=== PATIENT | male | born 2000 | race Caucasian/White ===

== ENCOUNTER 2024-06-21 15:48 | Emergency (ER) | payer BC, SELFPAY ==
--- NOTE | ~2024-06-21 | XR_ITS ---
XR finger 4th LT min 2V Ordering provider: Marija Grande MD History: . smashed finger at work today . Comparison: None. FINDINGS: BONES: Comminuted fractures seen in the tuft of the fourth finger of the left hand. Displacement of t he fragment seen anteriorly No other fractures seen. JOINT SPACES: Normal. SOFT TISSUES: Missing soft tissue is seen on the dorsum of the distal phalanx of the fourth finger IMPRESSION: Comminuted fracture in the tuft of the distal phalanx of the fourth finger. Reviewed, dictated and finalized at location A.
[2024-06-21 15:54] VITALS: BP 149/87; PULSE 77; RESP 20; TEMP 36.4; O2SAT 100
--- NOTE | 2024-06-21 16:17 | PC.NURSE ---
Pt declined ice pack at this time
--- NOTE | 2024-06-21 16:34 | ED.UPPEXIN ---
HPI - Extremity Injury (Upper) General Chief Complaint: Extremity Injury, Upper Stated Complaint: smashed finger Time Seen by Provider: 06/21/24 16:09 Source: patient Mode of arrival: ambulatory Limitations: no limitations History of Present Illness HPI narrative: 23 YEARS OLD WHITE MALE CAME TO THE EMERGENCY ROOM WITH INJURY AT THE TIP OF THE LEFT 4TH FINGER ON A PIECE OF EQUIPMENT AT WORK PRIOR TO ARRIVAL. HE DENIES OTHER INJURIES. PATIENT REPORTS HAVING A TETANUS SHOT WITHIN 5 YEARS. Related Data Allergies Allergy/AdvReac Type Severity Reaction Status Date / Time No Known Allergies Allergy Unverified 05/19/21 12:34 Review of Systems Review of Systems: All systems reviewed & are unremarkable except as noted in HPI and below PMFSH Surgical History Surgical History S/P ACL repair S/P MCL repair Social History Social History Smoking status: Former smoker Alcohol intake: current Alcohol use details: social Substance use: never Substance use type: does not use Living arrangements: with family Occupation/Education: occupation Gender identity (if verbalized by the patient): Male Exam Narrative: GENERAL APPEARANCE: WELL-DEVELOPED, WELL-NOURISHED SKIN: NORMAL COLOR HEAD: NORMOCEPHALIC, NONTRAUMATIC VASCULAR: NORMAL PERIPHERAL PULSES, NORMAL CAPILLARY REFILL. MUSCULOSKELETAL: LEFT RING FINGER SHOWED LACERATION AT THE TERMINAL PHALANX, WITH SUBANGULAR HEMATOMA NEUROLOGIC: ALERT AND ORIENTED ?3, GLUCOSE AND SYRUP WEIGHER IS NORMAL TESTED, NO GROSS MOTOR DEFICIT Course Consultations Consultation #1: DR. HERNANDEZ, FEW STITCHES, SPLINT, ANTIBIOTIC, SEE PATIENT NEXT WEEK Date: 06/21/24 Vital Signs Vital signs: Vital Signs Temperature 36.4 C 06/21/24 15:54 Pulse Rate 77 06/21/24 15:54 Respiratory Rate 20 06/21/24 15:54 Blood Pressure 149/87 H 06/21/24 15:54 Pulse Oximetry 100 06/21/24 15:54 Oxygen Delivery Room Air 06/21/24 15:54 Temperature 36.4 C 06/21/24 15:54 Pulse Rate 77 06/21/24 15:54 Respiratory Rate 20 06/21/24 15:54 Blood Pressure 149/87 H 06/21/24 15:54 Pulse Oximetry 100 06/21/24 15:54 Oxygen Delivery Room Air 06/21/24 15:54 Procedures Laceration Laceration 1: Date: 06/21/24 Time: 18:34 Site: hand Side (If applicable): left Size (cm): 1.5 Description: flap Depth: simple, single layer Local Anesthetic: lidocaine 1% Amount of anesthesia used (mL): 5 Pre-repair: irrigated ====== Skin Level ====== Skin layer closed with: nylon Size (cm): 6-0 Number of sutures: 3 Technique: simple, interrupted ====== Subcutaneous Layer ====== ====== Muscle Layer ====== ====== Tendon Layer ====== MDM - Extremity Injury (Upper) MDM Narrative Medical decision making narrative: PATIENT PRESENTS WITH TERMINAL PHALANX LEFT 4TH FINGER INJURY, PATIENT IS UP-TO-DATE FOR TETANUS SHOT X-RAY SHOWED COMMINUTED TUFT FRACTURE PATIENT RECEIVED 2 G OF ANCEF IV PATIENT RECEIVED FOR SUTURES TO KEEP THE WOUND EDGES CLOSE DISCHARGED ON KEFLEX, CALL DR. HERNANDEZ OFFICE FOR APPOINTMENT NEXT WEEK Imaging Data Radiologist's impression: Impressions Finger X-Ray 06/21/24 16:12 IMPRESSION: Comminuted fracture in the tuft of the distal phalanx of the fourth finger. Critical Care Time Critical Care Time Critical Care Time: No Discharge Plan Discharge Clinical Impression: Fracture of finger, distal phalanx, left, open Patient Disposition: Home, Self-Ca
[2024-06-21] MEDS: ceFAZolin 2 GM/D5W 50 ML 2 GM/50 ML BAG IVPB (17:32)
[2024-06-21] MEDS: HYDROGEN PEROXIDE 3% SOLN(*SP) 473 ML BOTTLE (17:33)
[2024-06-21 19:19] VITALS: BP 128/78; PULSE 78; RESP 16; TEMP 36.9; O2SAT 98
== END 2024-06-21 19:20 | disposition home or self-care (01) ==
PROVIDERS: Emergency Provider Emergency Medicine
DX: S62.635B Displaced fracture of distal phalanx of left ring finger, initial encounter for open fracture (principal); W23.0XXA Caught, crushed, jammed, or pinched between moving objects, initial encounter
CPT/HCPCS: 12001; 29130; 73140; 96365; 99284; A9270; J0690

== ENCOUNTER 2024-07-03 11:44 | Outpatient (CLI) | payer BC, SELFPAY ==
--- NOTE | ~2024-07-03 | XR_ITS ---
EXAMINATION: XR finger 4th LT min 2V DATE: 07/03/2024 11:58 INDICATION: Displaced fracture of the fourth distal phalanx. TECHNIQUE: Dorsal palmar, lateral and 2 oblique views of the left fourth digit were obtained COMPARISON: 06/21/2024 FINDINGS: Again seen is a comminuted fracture of the tuft of the left fourth distal phalanx with no significant change in the multiple small bone fragments many of which are displaced as a group approximately 2 m m proximal and palmar from the remainder of the tuft. No evidence of ostial lysis to suggest osteomye litis. No definitive productive changes of healing. Remainder of the visualized bones are normal with no other fractures evident with normal joint spaces. IMPRESSION: 1. No significant change in a comminuted tuft fracture of the left fourth distal phalanx Reviewed, dictated and finalized at location A. IMPRESSION: 1. No significant change in a comminuted tuft fracture of the left fourth dista l phalanx
== END 2024-07-03 11:45 | disposition home or self-care (01) ==
LOC: ANHIMG 11:48
PROVIDERS: Visit Provider Physician Assistant Surgical
DX: S62.635A Displaced fracture of distal phalanx of left ring finger, initial encounter for closed fracture (principal); X58.XXXA Exposure to other specified factors, initial encounter
CPT/HCPCS: 73140

== ENCOUNTER 2024-08-21 14:31 | Outpatient (CLI) | payer BC, SELFPAY ==
--- NOTE | ~2024-08-21 | XR_ITS ---
EXAMINATION: XR finger 4th LT min 2V DATE: 08/21/2024 14:46 INDICATION: Displaced fracture of distal phalanx of left hand fourth digit. TECHNIQUE: 4 views of left hand fourth digit were obtained. COMPARISON: Left hand fourth digit radiographs 07/03/2024, 06/21/2024 FINDINGS: Again seen is a comminuted fracture of tuft of fourth distal phalanx. The main distal fract ure fragment demonstrates 2 mm palmar displacement. Joint spaces are normal. IMPRESSION: 1. Unchanged comminuted fracture of fourth distal phalanx. Reviewed, dictated and finalized at location A.
== END 2024-08-21 14:32 | disposition home or self-care (01) ==
LOC: ANHIMG 14:34
PROVIDERS: Visit Provider Physician Assistant Surgical
DX: S62.635D Displaced fracture of distal phalanx of left ring finger, subsequent encounter for fracture with routine healing (principal); X58.XXXD Exposure to other specified factors, subsequent encounter
CPT/HCPCS: 73140

== ENCOUNTER 2025-09-05 12:09 | Emergency (ER) | payer OTHER, SELFPAY ==
--- NOTE | ~2025-09-05 | CT_ITS ---
EXAMINATION: CT abdomen pelvis w con DATE: 09/05/2025 15:16 INDICATION: Abdominal pain TECHNIQUE: Computed tomography (CT) of the abdomen and pelvis was performed with 100 mL Omnipaque-350 intravenous contrast. Automated exposure control and iterative reconstruction technique were employed. The dose-length product was 675.78 mGy-cm. COMPARISON: None FINDINGS: Lung bases are clear. Heart size is normal. No pericardial or pleural effusion. Liver, gallbladder, spleen, pancreas, bilateral adrenal glands and kidneys are normal. There are few scattered clonic diverticula without adjacent inflammatory stranding to suggest diverticular colitis. No bowel obstruction. There is wall thickening of the mildly dilated appendix which measures up to 9 mm in maximal diameter with mild periappendiceal stranding and a few mildly prominent likely reactive ileocolic chain lymph nodes. Constellation of findings most consistent with acute appendicitis. No evident abscess or free intraperineal gas or fluid. Bladder is normal. No pathologically enlarged abdominal or pelvic lymp hadenopathy. Bones are unremarkable. IMPRESSION: 1. Radiographically uncomplicated acute appendicitis. Dr. Ma discussed these findings with Dr. Wells at 3:43 PM. Reviewed, dictated and finalized at location A. IMPRESSION: 1. Radiographically uncomplicated acute appendicitis. Dr. Ma discussed th raúl findings with Dr. Wells at 3:43 PM.
[2025-09-05 12:13] VITALS: BP 129/83; PULSE 83; RESP 16; TEMP 37.3; O2SAT 100
--- NOTE | 2025-09-05 12:15 | ED.ABDPAIN ---
HPI - Abdominal Pain General Chief Complaint: Abdominal Pain Stated Complaint: lower abdominal pain Time Seen by Provider: 09/05/25 12:15 Source: patient Mode of arrival: ambulatory Limitations: no limitations History of Present Illness HPI narrative: 25-year-old male with no past medical history presents to the ED with a 1 day history of --lower abdominal pain. Pain was rated as 6/10. No radiation of the pain. No nausea/vomiting/diarrhea. No fever or chills. No dysuria or hematuria. MD elicited complaint: abdominal pain Pertinent past history: none Onset (ago): day(s) (One day) Pain Consistency: constant Location: RLQ and suprapubic Severity: moderate Pain scale (0-10): 6 Quality: aching Radiation: none Migration to: no migration Exacerbating factors: nothing Relieving factors: nothing Associated symptoms: denies other symptoms Related Data Home Medications ?Medication ?Instructions ?Recorded ?Confirmed ?Last Taken ?Type No Home Medications 09/05/25 09/05/25 Unknown History Allergies Allergy/AdvReac Type Severity Reaction Status Date / Time No Known Allergies Allergy Verified 09/05/25 12:21 Review of Systems Review of Systems: All systems reviewed & are unremarkable except as noted in HPI and below Constitutional: Constitutional: Reports as per HPI and Reports no additional constitutional complaints Eyes: Eyes: Reports as per HPI and Reports no additional eye complaints ENT: Reports system reviewed and no additional complaints, except as documented and Reports as per HPI Cardiovascular: Cardiovascular: Reports as per HPI and Reports no additional cardiovascular complaints Respiratory: Respiratory: Reports as per HPI and Reports no additional respiratory complaints Gastrointestinal: Gastrointestinal: Reports as per HPI, Reports no additional gastrointestinal complaints and Reports abdominal pain Genitourinary: Genitourinary: Reports no additional male genitourinary complaints and Reports as per HPI Musculoskeletal: Musculoskeletal: Reports no additional musculoskeletal complaints and Reports as per HPI Integumentary/Breasts: Skin/Breast: Reports system reviewed and no additional complaints, except as docu and Reports as per HPI Neurologic: Reports system reviewed and no additional complaints, except as documented and Reports as per HPI Psychiatric: Psychiatric: Reports no additional psychiatric complaints and Reports as per HPI Endocrine: Endocrine: Reports no additional endocrine complaints and Reports as per HPI Hematologic/Lymphatic: Hematologic/Lymphatic: Reports no additional hematologic/lymphatic complaints and Reports as per HPI Allergic/Immunologic: Allergic/Immunologic: Reports no additional allergic/immunologic complaints and Reports as per HPI [facility] Surgical History Surgical History S/P MCL repair S/P ACL repair Family History Family History Father No problems noted. Mother Multiple sclerosis Sibling No problems noted. Social History Social History Social History: Caffeine-daily Smoking status: Former smoker Smokeless tobacco user: other Second hand tobacco smoke exposure: Yes Alcohol intake: current Alcohol use details: social Substance use: never Substance use type: does not use Do You Feel Safe in your Home?: Yes Lack of Transportation: No Lack of Food: Never True Current Housing: I Have Housing Concerned About Future Housing: No Difficulty Paying Gas/Electric Bills: No Difficulty Paying for Meds: No Currently Unemployed: No Education: Associate Degree Difficulty w/ Childcare or Family Care: No Living arrangements: with family Occupation/Education: occupation 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 Afebrile. Const: Orientation/consciousness: patient oriented x3 Limitations: no limitations HENMT: Head: normal to inspection Ears: external ears normal Face/Nose/Sinus: Normal external nose present Face and sinus: normal facial exam Teeth and gingiva: dentition normal Throat: posterior oropharynx normal Eyes: Conjunctivae: conjunctivae normal Pupils: Equal, round and reactive pupils present EOM: EOMs intact bilaterally Direct Ophthalmoscopy: no photophobia Neck: Neck: normal visual inspection, no lymphadenopathy and no meningeal signs Chest: Chest palpation & inspection: normal inspection of the chest Resp: Effort & Inspection: normal respiratory effort Auscultation: clear to auscultation bilaterally Cardio: Rate: regular rate Rhythm: regular rhythm GI: GI Palp: Yes Soft to palpation Auscultation: normal bowel sounds Other: Tenderness in the suprapubic region and right lower quadrant. No rigidity/rebound. : General: Yes no CVA tenderness Back/Spine/Pelvis: Back: no CVA tenderness Skin: General skin exam: normal color Rashes: no rashes Wounds: no wounds Neuro: General: patient oriented x3, moves all extremities, no meningeal signs, no focal motor deficits and CN's II-XI intact bilaterally Cranial nerves: Yes Nystagmus not present Speech: normal speech Gait exam (Neuro): Normal gait present Extrem: General: normal to inspection and no clubbing, cyanosis or edema Psych: Mental Status: mental status grossly normal Affect: normal affect Attitude: cooperative Course Course Emergency Course: Lower abdominal pain Patient was noted to have a white cell count of 10.9. Patient went on to have a CT of the abdomen and pelvis which revealed uncomplicated appendicitis. Vital Signs Vital signs: Vital Signs Temperature 37.3 C 09/05/25 12:13 Pulse Rate 83 09/05/25 12:13 Respiratory Rate 16 09/05/25 12:13 Blood Pressure 129/83 09/05/25 12:13 Pulse Oximetry 100 09/05/25 12:13 Oxygen Delivery Room Air 09/05/25 12:13 Temperature 37.3 C 09/05/25 12:13 Pulse Rate 83 09/05/25 12:13 Respiratory Rate 16 09/05/25 12:13 Blood Pressure 129/83 09/05/25 12:13 Pulse Oximetry 100 09/05/25 12:13 Oxygen Delivery Room Air 09/05/25 12:13 MDM - Abdominal Pain MDM Narrative Medical decision making narrative: Appendicitis Medical Records Attestation: I reviewed the patient's medical records. Lab Data Attestation: I reviewed the patient's lab results. 09/05/25 12:27 09/05/25 12:27 Labs: Lab Results 09/05/25 09/05/25 Range/Units 12:27 13:03 WBC 10.9 H (4.8-10.8) K/mm3 RBC 5.22 (4.70-6.10) M/mm3 Hgb 14.6 (14.0-18.0) g/dL Hct 44.0 (40.0-54.0) % MCV 84.3 (78.0-102.0) fL MCH 28.0 (27.0-31.0) pg MCHC 33.2 (32-36) g/dL RDW 11.8 (11.6-14.4) % Plt Count 335 (150-420) K/mm3 MPV 9.4 (8.7-11.0) fl Immature Gran % (Auto) 0.4 H (0.0-0.0) % Neut % (Auto) 76.3 H (50.0-70.0) % Lymph % (Auto) 14.7 L (18.0-42.0) % Wise % (Auto) 7.4 (2.0-11.0) % Eos % (Auto) 0.8 L (1.0-6.0) % Baso % (Auto) 0.4 (0.0-1.0) % Lymph # (Auto) 1.59 (1.10-4.50) K/mm3 Wise # (Auto) 0.80 (0.10-0.90) K/mm3 Eos # (Auto) 0.09 (0.02-0.50) K/mm3 Baso # (Auto) 0.04 (0.00-0.10) K/mm3 Abs Immat Gran (auto) 0.04 H (0.00-0.00) K/mm3 Absolute Neuts (auto) 8.29 H (1.70-7.20) K/mm3 Absolute Nucleated RBC 0.00 (0.00-0.00) K/mm3 Nucleated RBC % 0.0 (0-0.0) % Sodium 141 (137-145) mmol/L Potassium 4.1 (3.4-5.0) mmol/L Chloride 101 (98-107) mmol/L Carbon Dioxide 30 (22-30) mmol/L Anion Gap 10 (4-12) mmol/L BUN 15 (9-20) mg/dL Creatinine 0.97 (0.7-1.3) mg/dL Estim Creat Clear Calc 131 ml/min Estimated GFR > 60 (59 - ) Glucose 97 (65-110) mg/dL Calculated Osmolality 292 (285-295) mOsm/kg Lactic Acid 0.9 (0.4-2.0) mmol/L Calcium 9.8 (8.4-10.2) mg/dL Total Bilirubin 0.9 (0.2-1.3) mg/dL AST 34 (17-59) U/L ALT 28 (6-50) U/L Alkaline Phosphatase 79 (38-126) U/L Total Protein 7.7 (6.3-8.2) g/dL Albumin 5.0 (3.5-5.1) g/dL Lipase 42 (23-300) U/L Urine Color Light yellow (Yellow) Urine Appearance Clear (Clear) Urine pH 7.5 (5.0-8.0) Ur Specific [place] 1.015 (1.010-1.020) Urine Protein Negative (Negative) Urine Glucose (UA) Negative (Negative) Urine Ketones Negative (Negative) Ur Blood (Man) Negative (Negative) Urine Nitrate Negative (Negative) Urine Bilirubin Negative (Negative) Urine Urobilinogen 1.0 (0.2-1.0) mg/dL Leukocyte Esterase Rfl Negative (Negative) LAURA/UL Imaging Data Radiologist's impression: ITS Impressions Abdomen/Pelvis CT 09/05/25 15:38 IMPRESSION: 1. Radiographically uncomplicated acute appendicitis. Dr. Ma discussed these findings with Dr. Wells at 3:43 PM. Discharge Plan Discharge Clinical Impression: Acute appendicitis Patient Disposition: Home Condition: Stable Instructions: Antibiotic Form Additional Instructions: Transfer patient to [facility]. Patient has been accepted by general surgeon Dr. Hanson Patient Language: Tajik Prescriptions: No Action No Home Medications Follow-up/Referrals: UNKNOWN,DOCTOR [Non-Staff] Time of Disposition: 16:04
[2025-09-05 12:34] LABS: Hematocrit 44.0 % (40.0-54.0); Hemoglobin 14.6 g/dL (14.0-18.0); Immature Granulocyte Percent A 0.4 % (0.0-0.0); Lymphocytes Absolute Auto 1.59 K/mm3 (1.10-4.50); Mean Corpuscular HGB Conc 33.2 g/dL (32-36); Mean Corpuscular Hemoglobin 28.0 pg (27.0-31.0); Mean Corpuscular Volume 84.3 fL (78.0-102.0); Nucleated Red Blood Cells Absolute Auto 0.00 K/mm3 (0.00-0.00); Nucleated Red Blood Cells Perc 0.0 % (0-0.0); Platelet Count Result 335 K/mm3 (150-420); Red Blood Count 5.22 M/mm3 (4.70-6.10); White Blood Count 10.9 K/mm3 (4.8-10.8)
[2025-09-05 12:46] LABS: Alanine Aminotransferase 28 U/L (6-50); Albumin Level 5.0 g/dL (3.5-5.1); Alkaline Phosphatase 79 U/L (38-126); Anion Gap 10 mmol/L (4-12); Aspartate Amino Transferase 34 U/L (17-59); Bilirubin,Total 0.9 mg/dL (0.2-1.3); Blood Urea Nitrogen 15 mg/dL (9-20); Calcium 9.8 mg/dL (8.4-10.2); Carbon Dioxide 30 mmol/L (22-30); Chloride 101 mmol/L (98-107); Estimated CRCL calculation 131 ml/min; Estimated Glomerular Filt Rate > 60; Glucose 97 mg/dL (65-110); Lipase 42 U/L (23-300); Osmolality Calculated 292 mOsm/kg (285-295); Potassium 4.1 mmol/L (3.4-5.0); Sodium 141 mmol/L (137-145); Total Protein 7.7 g/dL (6.3-8.2)
[2025-09-05 13:07] LABS: Add Urine Microscopic? NO; Appearance Urine Clear (Clear); Glucose Urine UA Negative (Negative); Leukocyte Esterase Ur Negative LEU/UL (Negative); Nitrate Urine Negative (Negative); Specific Grav Ur 1.015 (1.010-1.020)
--- OUTSIDE RECORDS SUMMARY | 2025-09-05 13:30 | XMS_ITS | Clinical Summary ---
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
--- OUTSIDE RECORDS SUMMARY | 2025-09-05 13:52 | XMS_ITS | Clinical Summary ---
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
--- OUTSIDE RECORDS SUMMARY | 2025-09-05 13:52 | XMS_ITS | Clinical Summary ---
Author Organization [facility] Address [address] [place] [address] Care Team Providers Care Dietetics Professor Name Role Phone Edd Encarnacion MD Primary Care Provider [phone] Allergies No known active allergies Medications EPINEPHrine 0.3 MG/0.3ML injection Inject 0.3 mLs (0.3 mg total) into the muscle as needed for Anaphylaxis . 1 each 01/13/2020 Active Immunizations Immunization Administration Dates Next Due Tdap (Boostrix) 06/14/2022 Family History Medical History Relation Comments COPD Maternal Grandfather COPD Maternal Grandmother Relation Status Comments Maternal Grandfather Maternal Grandmother Social History Tobacco Use Types Packs/Day Years Used Date Smoking Tobacco: Never Smokeless Tobacco: Never Alcohol Use Standard Drinks/Week Comments Yes 0 (1 standard drink = 0.6 oz pur e alcohol) SOCIALLY AUDIT-C Answer Date Recorded Frequency of Alcohol Consumption Never 05/22/2019 Average Number of Drinks Not on file 019 Frequency of Binge Drinking Not on file 05/08 Sex and Gender Information Value Date Recorded Sex Assigned at Not on file 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 Gender Identity Not on file Sexual Orientation Not on file Last Filed Vital Signs Vital Sign Reading Time Taken Comments Blood Pressure 124/70 09/27/2023 10:20 PM MUD ANALYSIS OPERATOR Pulse 76 09/27/2023 10:20 PM MUD ANALYSIS OPERATOR Temperature 36.7 C (98 F) 09/27/2023 10:20 PM MUD ANALYSIS OPERATOR Respiratory Rate 16 09/27/2023 10:20 PM MUD ANALYSIS OPERATOR Oxygen Saturation 99% 09/27/2023 10:20 PM MUD ANALYSIS OPERATOR Inhaled Oxygen Concentration - - Weight 97.5 kg (215 lb) 09/27/2023 9:04 PM MUD ANALYSIS OPERATOR Height 185.4 cm (6' 1) 09/27/2023 9:04 PM MUD ANALYSIS OPERATOR Body Mass Index 28.37 09/27/2023 9:04 PM MUD ANALYSIS OPERATOR Plan of Treatment Health Maintenance Due Date Last Done Comments Annual Physical 2003 Hepatitis C 2018 COVID-19 Vaccine ( season) 2025 Influenza Adult (#1) 2025 DTaP, Tdap and Td Vaccines (8 - Td or Tdap) 06/14/2032 06/14/2022, 07/14/2012, 06/11/2006, Additional history exists Pneumococcal Vaccine: Pediatrics (0 to 5 Years) and At-Risk Patients (6 to 49 Years) Aged Out 01/17/2001, 2000 No longer eligibl e based on patient's age to complete this topic Hepatitis B Vaccines Completed 01/25/2004, 12/22/2001, 01/24/2001, Additional history exists HPV Vaccines Completed 06/07/2017, 06/04/2015 Meningococcal Vaccine Completed 06/07/2017, 015 Hepatitis A Vaccines Aged Out No long er eligible based on patient's age to complete this topic Meningococcal B Vaccine Aged Out No l onger eligible based on patient's age to complete this topic RSV Immunizations Under 20 Months Aged Out No longer eligible based on patient's age to complete this topic [place] [address] [address] [id number] [employer] Care Teams Dietetics Professor Relationship Specialty Start Date End Date Edd Encarnacion MD [address] [place] [address] PCP - General INTERNAL MEDICINE 05/22/19
--- OUTSIDE RECORDS SUMMARY | 2025-09-05 13:52 | XMS_ITS | Encounter Summary ---
Author Organization [facility] Address [facility] [place] [address] Care Team Providers Care Arc Welding Machine Operator Name Role Phone Edd Encarnacion MD Primary Care Provider [phone] Encounter Details Date Type Department Care Team (Late st Contact Info) Description 04/15/2019 Abstract [facility] CONVERSION [address] [place] [address] , Generic Conversion, Social History Tobacco Use Types Packs/Day Years Used Date Smoking Tobacco: Never Assessed Sex and Gender Information Value Date Recorded Sex Assigned at Not on file 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
[2025-09-05] MEDS: KETOROLAC 30 MG/ML VIAL (*BKC) IM (14:20)
[2025-09-05] MEDS: SODIUM CHLORIDE 0.9% IV 1,000 ML 999 ML IV CONT (14:21)
[2025-09-05 14:30] VITALS: BP 149/82; PULSE 89; RESP 20; O2SAT 100
[2025-09-05] MEDS: PIPERACILLIN/TAZOBACTAM SOD 4.5 GM in SODIUM CHLORIDE 0.9% IV 100 ML 200 ML IVPB (15:51)
[2025-09-05 16:00] VITALS: BP 146/77; PULSE 88; RESP 12; TEMP 36.6; O2SAT 100
== END 2025-09-05 16:33 | disposition short-term general hospital (02) ==
PROVIDERS: Emergency Provider Internal Medicine Critical Care Medicine; Referring Provider Internal Medicine
DX: K35.80 Unspecified acute appendicitis (principal); Z87.891 Personal history of nicotine dependence
CPT/HCPCS: 36415; 74177; 80053; 81003; 83605; 83690; 85025; 96361; 96365; 96372; 99284; J1885; J2250; J2543; J3010; J7030; Q9967

== ENCOUNTER 2025-09-05 16:38 | Observation (INO) | payer BC, SELFPAY ==
--- OUTSIDE RECORDS SUMMARY | 2023-10-21 07:40 | XMS_ITS | Continuity of Care Document ---
Author Organization [facility] Address [address] [place] [address] Phone Care Team Providers Care Foundry Helper Name Role Phone Gilberto Tucker MD, Baljeet Unavailable Unavailab le Medications Medication Instructions Dosage Effective Dates (start - stop) Status Comments meloxicam 7.5 mg tablet take 1 tablet by oral route every day 7.5 MG - Active Procedures Procedure Date RADEX KNE COMPL 4/MORE VIEWS OFFICE/OUTPATIENT VISIT NEW Advance Directives Directive Yes / No Effective Date File Name No Information Encounters Encounter Description Practice Location Reason(s) For Visit Diagnoses Date Provider Providers Copied on Encounter [facility] , [address], [place], [place], [facility], [phone] [facility] No Information 3 Gilberto Delong. [address], [place], [facility], [place]. tel: [phone] OFFICE/OUTPAT IENT VISIT NEW [facility] , [address], [place], [facility], [place] [phone] [facility], unspecified chronicityBody mass index [BMI] 28.0-28.9, adult 3 Gilberto Delong. [address], [place], [place], [facility], [place]. tel: [phone] Family History Family Member Type Diagnosis Age At Onset No Information Payers Payer name Insurance type Covered alliance party ID Authoriza tion(s) Blue Access Choice PPO E2 [id number] Social History Type Description Quantity Date Captured Comments Alcohol Use Details Unknown Caffeine Use Details Unknown Tobacco Use Status Smoking Status No Information Sex Male Chief Complaint And Reason For Visit No Information Reason For Referral Reason For Referral No Information Plan Of Treatment Date Type Action Status Goal Tobacco cessation counseling completed Referral Ordered: RADEX KNE COMPL 4/MORE VIEWS LT knee ordered History Of Present Illness Encounter Date Complaint History Of Prese nt Illness No Information Functional Status Date Functional Assessmen t No Information Instructions Date Instruction Additional Infor mation Giving encouragement to exercise Related to Body mass index [BMI] 28.0-28.9, adult Assessments Type Assessment Date No Information Patient Care Teams Name Effective Dates (start - stop) Status Members No Information
[2025-09-05] VITALS (9 sets, daily range): BP systolic 126–149; BP diastolic 57–89; PULSE 64–94; RESP 14–20; TEMP 36.4–36.8; O2SAT 92–100
--- NOTE | 2025-09-05 16:45 | WPDANESEPP ---
Anes - Eval Pre Procedure Procedure: Operation Date: 09/05/25 19:15 Proposed Procedures p Laparoscopic Appendectomy - Jax Kebede MD Date/Time: 09/05/25 16:45 Surgeon: Delio Pre Op Diagnosis: Acute Appendicitis Patient Data Age: 25 Gender: M Height: Weight: Allergies Allergy/AdvReac Type Severity Reaction Status Date / Time No Known Allergies Allergy Verified 09/05/25 12:21 Home Medications ?Medication ?Instructions ?Recorded ?Confirmed ?Type No Home Medications 09/05/25 09/05/25 History Patient hx anesthesia problems: none Family hx anesthesia problems: none Results Review: All pre-operative results and documents have been reviewed as part of the pre-operative evaluation. [facility] Past Medical History Medical History Acute appendicitis Surgical History Surgical History S/P MCL repair S/P ACL repair Family History Family History Father No problems noted. Mother Multiple sclerosis Sibling No problems noted. Social History Social History Social History: Caffeine-daily Smoking status: Former smoker Smokeless tobacco user: other Second hand tobacco smoke exposure: Yes Alcohol intake: current Alcohol use details: social Substance use: never Substance use type: does not use Do You Feel Safe in your Home?: Yes Lack of Transportation: No Lack of Food: Never True Current Housing: I Have Housing Concerned About Future Housing: No Difficulty Paying Gas/Electric Bills: No Difficulty Paying for Meds: No Currently Unemployed: No Education: Associate Degree Difficulty w/ Childcare or Family Care: No Living arrangements: with family Occupation/Education: occupation 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
--- NOTE | 2025-09-05 16:53 | P.HP_ITS ---
H&P: HPI History of Present Illness Date/Time: 09/05/25 16:53 Chief Complaint: Acute appendicitis Narrative: Patient is a 25-year-old otherwise healthy male who presented to the [facility] Emergency Room with a 1 day history of right lower quadrant abdominal pain. He had a mild leukocytosis of 11,000. No fever or tachycardia. CT scan abdomen pelvis was performed showing a uncomplicated acute appendicitis without perforation or periappendiceal abscess. Patient is transferred from [facility] Emergency Room to [facility] for emergent surgical management. Review of Systems Review of Systems: The remainder of the review of systems to include constitutional, HEENT, cardiovascular, respiratory, GI, , integumentary, musculoskeletal, endocrine, immunologic, hematologic, psychiatric, and neurologic are all negative except for which is mentioned above in the HPI. [facility] Past Medical History Medical History Acute appendicitis Surgical History Surgical History S/P MCL repair S/P ACL repair Family History Family History Father No problems noted. Mother Multiple sclerosis Sibling No problems noted. Social History Social History Social History: Caffeine-daily Smoking status: Former smoker Smokeless tobacco user: other Second hand tobacco smoke exposure: Yes Alcohol intake: current Alcohol use details: social Substance use: never Substance use type: does not use Do You Feel Safe in your Home?: Yes Lack of Transportation: No Lack of Food: Never True Current Housing: I Have Housing Concerned About Future Housing: No Difficulty Paying Gas/Electric Bills: No Difficulty Paying for Meds: No Currently Unemployed: No Education: Associate Degree Difficulty w/ Childcare or Family Care: No Living arrangements: with family Occupation/Education: occupation 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 Gender identity (if verbalized by the patient): Male Meds Home Medications and Allergies Home Medications ?Medication ?Instructions ?Recorded ?Confirmed ?Type No Home Medications 09/05/25 09/05/25 H istory Allergies Allergy/AdvReac Type Severity Reaction Status Date / Time No Known Allergies Allergy Verified 09/05/25 12:21 Exam Const: General: comfortable and no acute distress HENMT: Ears: TM's normal bilaterally Face/Nose/Sinus: Normal nares present Mouth: Yes moist mucous membranes Eyes: General: appearance normal, both eyes and all related structures Sclera: sclerae normal Pupils: Equal, round and reactive pupils present EOM: EOMs intact bilaterally Neck: Neck: supple and no JVD Resp: Effort & Inspection: normal respiratory effort Auscultation: clear to auscultation bilaterally Cardio: Rate: regular rate Rhythm: regular rhythm GI: Other: Abdomen is soft and nondistended. Moderate tenderness to palpation right lower quadrant. Tenderness at McBurney's point. No generalized peritoneal signs. No ventral hernias. No masses. : Male General Exam: Yes normal external exam Skin: General skin exam: normal color and no rashes or lesions noted Neuro: General: gait normal Speech: normal speech Motor exam (neuro): 5/5 motor strength present throughout Sensory Exam: normal sensation Extrem: General: normal to inspection Psych: Mental Status: mental status grossly normal Affect: normal affect H&P: Results Imaging CT scan - abdomen: Radiologist's impression: CT Scan Report Signed Patient: Thuan Rene : 2000 MR#: [id number] Age: 25 Acct:[id number] [facility] Date: 09/05/[address]: Ordering Physician: Misbah Wells MD Date of Service: 09/05/25 Procedure(s): CT abdomen pelvis w con Accession Number(s): [id number] cc: Misbah Wells MD; FREIGHT FORWARDER PHYSICIAN~ EXAMINATION: CT abdomen pelvis w con DATE: 09/05/2025 15:16 INDICATION: Abdominal pain TECHNIQUE: Computed tomography (CT) of the abdomen and pelvis was performed with 100 mL Omnipaque-350 intravenous contrast. Automated exposure control and iterative reconstruction technique were employed. The dose-length product was 675.78 mGy-cm. COMPARISON: None FINDINGS: Lung bases are clear. Heart size is normal. No pericardial or pleural effusion. Liver, gallbladder, spleen, pancreas, bilateral adrenal glands and kidneys are normal. There are few scattered clonic diverticula without adjacent inflammatory stranding to suggest diverticular colitis. No bowel obstruction. There is wall thickening of the mildly dilated appendix which measures up to 9 mm in maximal diameter with mild periappendiceal stranding and a few mildly prominent likely reactive ileocolic chain lymph nodes. Constellation of findings most consistent with acute appendicitis. No evident abscess or free intraperineal gas or fluid. Bladder is normal. No pathologically enlarged abdominal or pelvic lymphadenopathy. Bones are unremarkable. IMPRESSION: 1. Radiographically uncomplicated acute appendicitis. Dr. Ma discussed these findings with Dr. Wells at 3:43 PM. Reviewed, dictated and finalized at location A. Please be advised this is a medical document. It is intended for [id number] communication. It is written in medical language and may contain unfamiliar abbreviations or verbiage. Medical documents are intended to carry relevant information, facts as evident, and the clinical opinion of the practitioner at the time of the encounter. This report may have been done utilizing a voice recognition system. Attempts have been made to correct errors. However, there may be uncorrected grammatical, spelling, and recognition errors present. The file time of this note does not necessarily represent the time of service. Dictated By: Harris Ma MD 09/05/25 1538 Signed By: <Electronically signed by Harris Ma MD in OV> 09/05/25 1545 Assessment and Plan Assessment and plan (1) Acute appendicitis: Code(s): K35.80 - Unspecified acute appendicitis Status: Acute Assessment and Plan: Patient transferred from [facility] Emergency Room to [facility] for definitive surgical management. He was given a dose of Zosyn in the emergency room and [place]. Will keep him NPO. Consent for laparoscopic appendectomy with possible conversion open appendectomy. We will go to the operating room this evening for a laparoscopic appendectomy. Risks, benefits, indications, and expected outcomes were discussed in detail with the patient and/or family. They understand and I have answered all other questions. They wished to proceed with surgery as outlined above.
--- NOTE | 2025-09-05 16:57 | WPDHPUPDATE1 ---
History and Physical Update Update Date/Time: 09/05/25 16:57 History and Physical has been reviewed, including an updated exam of the patient. There are NO changes in the patient's condition. Risks, benefits, and alternatives have been discussed and questions answered. Patient agrees to proceed with procedure.
--- NOTE | 2025-09-05 17:19 | P.PNAN_ITS ---
Anes - Eval Final PreProcedure Day of Procedure 09/05/25 17:19 Patient weight: overweight Heart: regular rate and rhythm Lungs: clear to auscultation Airway: Mallampati scale class II Neurological: alert and oriented Last oral intake: >/= 8 hours ASA classification: II Emergent: yes Anesthetic plan: proceed Anesthesia type and monitoring: general ETT and standard monitoring Results Review: All pre-operative results and documents have been reviewed as part of the pre- operative evaluation. Informed Consent: The patient's anesthetic plan and its attendant risks and benefits were discussed with the patient/family/POA. Questions were solicited and answers provided to the satisfaction of the patient/family/POA.
[2025-09-05] MEDS: BUPivacaine HCL 0.5% 10 ML AMP 30 ML INFILTRATE (18:05)
[2025-09-05] MEDS: LIDO 1%/EPINEPHRINE 1:100,000 20 ML VIAL 30 ML INFILTRATE (18:06)
--- OUTSIDE RECORDS SUMMARY | 2025-09-05 18:07 | XMS_ITS | Clinical Summary ---
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
--- OUTSIDE RECORDS SUMMARY | 2025-09-05 18:07 | XMS_ITS | Encounter Summary ---
Author Organization [facility] Address [facility] [place] [address] Care Team Providers Care Rap Artist Name Role Phone Edd Encarnacion MD Primary Care Provider [phone] Encounter Details Date Type Department Care Team (Late st Contact Info) Description 04/15/2019 Abstract [facility] CONVERSION [address] [place] [address] , Generic Conversion, Social History Tobacco Use Types Packs/Day Years Used Date Smoking Tobacco: Never Assessed Sex and Gender Information Value Date Recorded Sex Assigned at Not on file 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
--- OUTSIDE RECORDS SUMMARY | 2025-09-05 18:07 | XMS_ITS | Clinical Summary ---
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 Gender Identity Not on file Sexual Orientation Not on file Last Filed Vital Signs Vital Sign Reading Time Taken Comments Blood Pressure 124/70 09/27/2023 10:20 PM CLINICAL DOCUMENTATION NURSE Pulse 76 09/27/2023 10:20 PM CLINICAL DOCUMENTATION NURSE Temperature 36.7 C (98 F) 09/27/2023 10:20 PM CLINICAL DOCUMENTATION NURSE Respiratory Rate 16 09/27/2023 10:20 PM CLINICAL DOCUMENTATION NURSE Oxygen Saturation 99% 09/27/2023 10:20 PM CLINICAL DOCUMENTATION NURSE Inhaled Oxygen Concentration - - Weight 97.5 kg (215 lb) 09/27/2023 9:04 PM CLINICAL DOCUMENTATION NURSE Height 185.4 cm (6' 1) 09/27/2023 9:04 PM CLINICAL DOCUMENTATION NURSE Body Mass Index 28.37 09/27/2023 9:04 PM CLINICAL DOCUMENTATION NURSE Plan of Treatment Health Maintenance Due Date [...] patient's age to complete this topic [place] [address] [place] [address] [employer] Care Teams Filer And Sander Relationship Specialty Start Date End Date Edd Encarnacion MD [address] [place] [address] PCP - General INTERNAL MEDICINE 05/22/19
--- NOTE | 2025-09-05 18:36 | W.PM.PROC2 ---
Procedure Note - Detailed Date of Procedure 09/05/25 Pre-op Diagnosis Acute Appendicitis Post-op Diagnosis Same Procedure Performed Laparoscopic appendectomy Surgeon Jax Kebede MD Promotions Officer Bo Peña DO Anesthesia General Indications Patient is a 25-year-old male presented outside emergency room with 1 day history of worsening right lower quadrant abdominal pain. Had a mild leukocytosis of 11,000. CT scan abdomen pelvis showed a dilated and inflamed appendix without perforation. He is brought to the operating now for an urgent laparoscopic appendectomy. Findings The appendix was acutely inflamed. No gangrenous changes to the appendix. No perforation or periappendiceal abscess was seen. The base appendix appeared to be normal. Description of Procedure After informed consent was obtained patient brought to the operating room where he was placed in the supine position and general endotracheal anesthesia was administered. A Miller catheter was placed decompress the bladder. The abdomen was then prepped and draped usual sterile fashion. Time-out was then performed correctly identifying the patient as well as procedure to be performed. He had been given a dose of Zosyn in the emergency room within the last 3hours. We then entered the abdomen left upper quadrant utilizing a 5mm Optiview port. Once inside the abdomen insufflated to adequate pneumoperitoneum of 15mmHg of CO2. The patient was then placed in a head-down Trendelenburg position and rotated to the patient's left side. The appendix could be seen in the right lower quadrant the abdomen and was inflamed. We then placed a 5mm suprapubic trocar port as well as a 5mm right lower quadrant trocar port and a 12mm periumbilical trocar port all under direct visualization. Working through these trocar ports with laparoscopic instruments were able to divide a few peritoneal adhesions to free up the appendix laterally there with the hook electrocautery. This then allowed us to identify the base of the appendix and then a defect was made through the mesoappendix utilizing Katja tian. A 45mm echelon battery powered RODRIGO stapler was then used to divide the appendix flush with the cecum. A vascular reload to the echelon Endo-RDORIGO stapler was then used to divide the mesoappendix. The appendix was then placed into an Endo-Catch bag and brought out through the periumbilical trocar port site. It was passed off table sent to pathology for examination. There was a small amount of bleeding from the mesoappendix staple line which was treated electrocautery to achieve hemostasis. The right lower quadrant the abdomen and the pelvis was then irrigated with sterile saline solution and a small amount of blood clot fluid was aspirated. Both staple lines appeared hemostatic. Then removed all the trocar ports under direct visualization all port sites appeared hemostatic. The abdomen was allowed to decompress. The 12mm periumbilical trocar port fascial defect at the fascial level was then closed utilizing 0 Vicryl suture. The skin edges in all the port sites were then approximated lies in a running subcuticular 4 Monocryl suture. Local anesthetic mixture consisting 1% lidocaine mixed with 0.5% Marcaine was then injected around all the incisions. The incisions were then cleaned and skin glue was applied. A Miller catheter was removed at the end the procedure. The patient tolerated the procedure well no complications. All sponges, needles, and instrument counts were correct at the end procedure. EBL was _10__cc. The patient was awakened and taken to recovery in stable and satisfactory condition. Implants None Estimated Blood Loss 10 Drains No Packing No Pathology Yes (Appendix to pathology) Complications No immediate complications Condition Stable Disposition PACU [facility] Billing Surgery - Charge Forward: Surgery Billing
[2025-09-05] MEDS: LACTATED RINGERS 1,000 ML 30 ML IV CONT ×2 (18:43)
[2025-09-05] MEDS: fentaNYL CITRATE INJ (*CRX) 100 MCG/2 ML VIAL 25 MCG IV PUSH ×4 (19:03→19:19)
[2025-09-05] MEDS: LACTATED RINGERS 1,000 ML 100 ML IV CONT (19:55)
[2025-09-05] MEDS: MORPHINE SULFATE (*CRX) 4 MG/ML INJ IV PUSH (20:06)
[2025-09-05] MEDS: oxyCODONE HCL (*CRX) 5 MG TAB IR PO (20:49)
[2025-09-05] MEDS: HYDROcodone/acetaminophen (*CRX) 5-325 MG TABLET 1 TAB PO (22:11)
[2025-09-06 02:02] VITALS: BP 125/61; PULSE 73; RESP 16; TEMP 36.1; O2SAT 99
[2025-09-06 06:13] VITALS: BP 129/82; PULSE 64; RESP 18; TEMP 36.3; O2SAT 100
--- NOTE | 2025-09-06 07:45 | PM.PNGS ---
Progress Note: A&P Assessment and Plan (1) Acute appendicitis: Code(s): K35.80 - Unspecified acute appendicitis <Bo Peña DO - Last Filed: 09/06/25 07:49> Status: Inactive <Bo Peña DO - Last Filed: 09/06/25 07:49> Assessment and Plan: POD#1 s/p laparoscopic appendectomy -Doing well postoperatively -Urinating, ambulating, having bowel function -Pain controlled -Incisions CDI -ADAT to regular this am -DC IVF -Likely DC home postoperatively today A&P discussed with Dr. Kebede <Bo Peña DO - Last Filed: 09/06/25 07:49> POD#1 s/p laparoscopic appendectomy -Doing well postoperatively -Urinating, ambulating, having bowel function -Pain controlled -Incisions CDI -ADAT to regular this am -DC IVF -Likely DC home postoperatively today A&P discussed with Dr. Kebede I have personally seen and evaluated the patient today with surgery resident.? ? I have reviewed any new relevant radiographic and laboratory results.? I have reviewed the johnson elements of the patient's current surgical or medical problems and I have personally performed a substantive portion of the care for this patient.? I personally performed the pertinent physical exam and reviewed and confirmed the patient's medicine list.? ? I have formulated the surgical care plan and I agree with the documented note above. Okay to discharge home today. Follow up in the office in 2 weeks. Discharge instructions written. <Jax Kebede MD - Last Filed: 09/06/25 09:20> Subjective Subjective Date/Time Seen: 09/06/25 07:45 <Bo Peña DO - Last Filed: 09/06/25 07:49> Interval history: NAEON. POD#1 s/p laparoscopic appendectomy. Pain controlled. Tolerated FLD. Urinating, ambulating, having bowel function. Incisions CDI. VSS. <Bo Peña DO - Last Filed: 09/06/25 07:49> Review of Systems Review of Systems: All systems reviewed & are unremarkable except as noted in HPI and below <Bo Peña DO - Last Filed: 09/06/25 07:49> Exam Const: General: comfortable and no acute distress <Bo E. Peña, DO - Last Filed: 09/06/25 07:49> HENMT: Ears: TM's normal bilaterally <Bo E. Casey, DO - Last Filed: 09/06/25 07:49> Face/Nose/Sinus: Normal nares present <Bo E. Casey, DO - Last Filed: 09/06/25 07:49> Mouth: Yes moist mucous membranes <Bo E. Casey, DO - Last Filed: 09/06/25 07:49> Eyes: General: appearance normal, both eyes and all related structures <Bo E. Casey, DO - Last Filed: 09/06/25 07:49> Sclera: sclerae normal <Bo E. Casey, DO - Last Filed: 09/06/25 07:49> Pupils: Equal, round and reactive pupils present <Bo E. Casey, DO - Last Filed: 09/06/25 07:49> EOM: EOMs intact bilaterally <Bo EBrigid Peña, DO - Last Filed: 09/06/25 07:49> Neck: Neck: supple and no JVD <Bo Peña, DO - Last Filed: 09/06/25 07:49> Resp: Effort & Inspection: normal respiratory effort <Bo Peña, DO - Last Filed: 09/06/25 07:49> Auscultation: clear to auscultation bilaterally <Bo Peña, DO - Last Filed: 09/06/25 07:49> Cardio: Rate: regular rate <Bo Peña, DO - Last Filed: 09/06/25 07:49> Rhythm: regular rhythm <Bo Genaro Peña, DO - Last Filed: 09/06/25 07:49> GI: Other: Abdomen is soft and nondistended. Appropriately TTP postoperatively. Incisions CDI. No generalized peritoneal signs. No ventral hernias. No masses. <Bo Redmond. Casey, DO - Last Filed: 09/06/25 07:49> : Male General Exam: Yes normal external exam <Bo Peña, DO - Last Filed: 09/06/25 07:49> Skin: General skin exam: normal color and no rashes or lesions noted <Bo Genaro Peña, DO - Last Filed: 09/06/25 07:49> Neuro: General: gait normal <Bo E. Peña, DO - Last Filed: 09/06/25 07:49> Speech: normal speech <Bo E. Peña, DO - Last Filed: 09/06/25 07:49> Motor exam (neuro): 5/5 motor strength present throughout <Bo E. Peña, DO - Last Filed: 09/06/25 07:49> Sensory Exam: normal sensation <Bo E. Peña, DO - Last Filed: 09/06/25 07:49> Extrem: General: normal to inspection <Bo E. Peña, DO - Last Filed: 09/06/25 07:49> Psych: Mental Status: mental status grossly normal <Bo E. Peña, DO - Last Filed: 09/06/25 07:49> Affect: normal affect <Bo E. Peña, DO - Last Filed: 09/06/25 07:49> Objective Data Vital Signs Vital Signs: Vital Signs - 24 hr 09/05/25 18:43 09/05/25 18:55 09/05/25 19:10 Temperature 97.5 F L Pulse Rate 83 94 85 Respiratory Rate 14 20 16 Blood Pressure 126/57 L 139/70 145/83 H Pulse Oximetry 100 92 99 Oxygen Delivery Simple Face Mask Simple Face Mask Room Air Oxygen Flow Rate 8 8 09/05/25 19:25 09/05/25 19:35 09/05/25 19:55 Temperature 97.8 F Pulse Rate 89 73 91 Respiratory Rate 16 14 18 Blood Pressure 149/89 H 143/76 H 137/87 Pulse Oximetry 100 97 100 Oxygen Delivery Room Air Room Air Oxygen Flow Rate 09/05/25 20:10 09/05/25 20:40 09/05/25 21:40 Temperature 97.8 F 98.3 F 98.1 F Pulse Rate 64 66 75 Respiratory Rate 18 18 18 Blood Pressure 139/85 134/88 126/73 Pulse Oximetry 99 97 97 Oxygen Delivery Oxygen Flow Rate 09/06/25 02:02 09/06/25 06:13 Temperature 97.0 F L 97.4 F L Pulse Rate 73 64 Respiratory Rate 16 18 Blood Pressure 125/61 129/82 Pulse Oximetry 99 100 Oxygen Delivery Oxygen Flow Rate <Bo E. Peña, DO - Last Filed: 09/06/25 07:49> Intake/Output Intake/Output: Intake & Output 09/03/25 09/04/25 09/05/25 09/06/25 23:59 23:59 23:59 23:59 Intake Total 600 Balance 600 <Bo Peña DO - Last Filed: 09/06/25 07:49> Meds/Results Medications: Active Medications Generic Name Dose Route Start Last Admin Trade Name Freq PRN Reason Stop Dose Admin Acetaminophen 1,000 mg 09/05/25 19:41 Acetaminophen 500 Mg Tablet PO Q6H PRN Mild Pain (1-3) or Fever Hydrocodone Bitart/Acetaminophen 1 tab 09/05/25 19:41 09/05/25 22:11 Hydrocodone/Acetaminophen (*Crx) 5-325 Mg Tablet PO 1 tab Q4H PRN Administration Pain Rated 4-6 Lactated Ringer's 1,000 mls @ 100 mls/hr 09/05/25 19:41 09/05/25 19:55 Lr - Lactated Ringers Iv IV CONT 100 mls/hr .Q10H SHAWNA Administration Morphine Sulfate 4 mg 09/05/25 19:41 09/05/25 20:06 Morphine Sulfate (*Crx) 4 Mg/Ml Inj IV PUSH 4 mg Q4H PRN Administration Pain Rated 7-10 Ondansetron HCl 4 mg 09/05/25 19:41 Ondansetron Inj 4 Mg/2 Ml Vial IV PUSH Q6H PRN Nausea And Vomiting Oxycodone HCl 5 mg 09/05/25 19:41 09/05/25 20:49 Oxycodone Hcl (*Crx) 5 Mg Tab Ir PO 5 mg Q6H PRN Administration Pain Rated 7-10 <Bo Peña, DO - Last Filed: 09/06/25 07:49>
--- NOTE | 2025-09-06 07:47 | S_PTH ---
PATIENT: Thuan Rene LOC: [id number] U#:[id number] AGE/SX: 25/M ROOM: 315 RE09/05/[address]: Jax Kebede MD : [id number] BED: 02 DIS: 09/06/2025 SPEC #: [id number] RECD: 09/06/25 10:12 STATUS: MARKIE REQ #: [id number] AFTAB: 09/06/25 07:[address]: Jax Kebede DEPT: [facility] Surgical RECD BY: Kaleigh Garcia ENTERED: 09/06/25 10:12 SP TYPE: Surgical OTHR DR: UNKNOWN,DOCTOR Tissues: A - Appendix Procedures: Hematoxylin and Eosin Stain Gross and Microscopic Level 3
[2025-09-06] MEDS: HYDROcodone/acetaminophen (*CRX) 5-325 MG TABLET 1 TAB PO (08:27)
--- NOTE | 2025-09-06 09:24 | PM.DS ---
DS: Admitting Diagnosis Discharge Date September 06, 2025 Admitting Diagnosis Acute appendicitis DS: Discharge Diagnosis Discharge Diagnosis (1) Acute appendicitis: Code(s): K35.80 - Unspecified acute appendicitis Status: Acute DS: Summary Hospital Course Reason for hospitalization: Surgical management of acute appendicitis Hospital Course: Patient presented to [facility] Emergency Room with a 1 day history of worsening mid and lower abdominal pain which eventually localized right lower quadrant the abdomen. Workup in that emergency [place] [address]. He does not appear toxic. CT scan abdomen pelvis was performed showing a appendix which was dilated with thickened appendiceal wall and periappendiceal inflammation consistent with acute appendicitis. The appendix was not perforated there was no periappendiceal abscess. The patient was subsequently transferred to [facility] for surgical management. He was transferred by ambulance and arrived clinically stable. He was then taken immediately to the operating room he underwent an uncomplicated laparoscopic appendectomy. Post surgically he did well in the recovery room and was transferred to the surgical floor for routine postoperative care overnight. Will on the surgical floor he was given IV fluids and clear liquids as tolerated. Pain was well controlled with combination of IV pain medications and oral pain medications. The next morning he was doing well and his right lower quadrant pain had resolved. He was only having some mild soreness around his port site incisions. Incisions appear to be healing well without any redness or drainage. He was up walking around and going to the bathroom without difficulty. He was afebrile. He tolerated regular food for breakfast and had a pain pill which he tolerated well. It was decided on postop day that he was doing well enough to be discharged home. Status at Discharge Functional status at discharge: independent ambulation Overall status at discharge: patient is back to baseline Time Spent with Patient Time attestation: Total time spent providing and/or coordinating discharge services: Time spent: Less than 30 minutes Exam GI: Other: Abdomen is soft nondistended. Port site incisions are healing well with skin glue in place. No redness or drainage. Right lower quadrant tenderness prior to surgery is now resolved. Only expected mild tenderness to palpation around the port site incisions. DS: Data Data Completed and Pending Pending studies at discharge: Pending at discharge 09/06/25 07:47 Surgical [PTH] Routine Discharge Plan Discharge Attending physician on discharge: Jax Kebede Discharging Clinician: Jax Kebede Anticipated Discharge Date/Time: 09/06/25 09:21 Patient Disposition: Home Activity: other - see discharge instructions Diet: regular Wound Care Instructions: other - see discharge instructions Discharge Instructions: May discharge home when stable. Follow up with Dr. Kebede in the office in 2 weeks. Patient to call [phone] for an appointment. May shower in 24hours but do not soak incisions under water for 2 weeks. No lifting more than 10 to 15 lb for 2 weeks. May advance diet as tolerated. No driving for at least 3 days or until no longer taking any narcotic pain medication. Resume all home medications. Prescription for narcotic pain medicines will be sent to the patient's pharmacy if needed. May use Tylenol and/or ibuprofen in addition to or in place of narcotic pain medications for postoperative pain. Patient Instructions: Antibiotic Form Patient Language: Czech Stand Alone Forms: General Discharge Information Follow-up/Referrals: Jax Kebede MD [Physician, General Surgery] Referral Note: Follow-up in office to see Dr. Kebede in 2 weeks. Patient to call for an appointment. Discharge Medications: New hydrocodone-acetaminophen 5-325 mg tablet 1 tablet PO Q4H PRN (Reason: pain) Qty: 12 0RF No Action No Home Medications Date of admission: 09/05/25 16:38 Primary Care Provider: UNKNOWN,DOCTOR Admitting Provider: Jax Kebede Attending physician on admission: Jax Kebede Condition: Improved
== END 2025-09-06 10:05 | disposition home or self-care (01) ==
PROVIDERS: Admitting Provider Surgery; Visit Provider Surgery
PROC: 0DTJ4ZZ Resection of Appendix, Percutaneous Endoscopic Approach (ICD-10-PCS; CPT 44970; principal; 2025-09-05 19:15)
DX: K35.80 Unspecified acute appendicitis (principal); D72.829 Elevated white blood cell count, unspecified; Z87.891 Personal history of nicotine dependence
CPT/HCPCS: 44970; 88304; A9270; G0378; G0379; J0330; J1100; J2003; J2004; J2270; J2405; J2704; J3010; J7120